=== PATIENT | female | born 1965 | race Caucasian/White ===

== ENCOUNTER → 2016-07-13 | Outpatient (CLI) | payer OTHER ==
[2016-05-23 19:45] VITALS: BP 111/71
--- NOTE | 2016-07-13 15:51 | RAD ---
Left foot, 3 views, 07/13/2016: History: Foot pain 3 weightbearing views of the left foot were obtained as requested. There is mild degenerative change at the first MTP joint. No fracture or dislocation is identified. There is a small inferior calcaneal spur. Several phlebolith type calcifications are noted in the soft tissues. IMPRESSION: 1. Mild degenerative change at the first MTP joint. 2. No acute bony abnormality is detected.
== END | disposition home or self-care (01) ==
LOC: DXRADRC 11:20
PROVIDERS: ATTEND Podiatrist Foot & Ankle Surgery
DX: M79.672 Pain in left foot (principal); I87.8 Other specified disorders of veins
CPT/HCPCS: 73630

== ENCOUNTER 2017-12-19 14:33 | Emergency (ER) | payer OTHER ==
[~2017-12-19] VITALS: Ht 165.1 cm; Wt 97.5 kg
--- NOTE | 2017-12-19 15:08 | PHYS DOC ---
Past History Past Medical History: GERD, Hypothyroid Past Surgical History: Cholecystectomy, Other Smoking: Non-smoker Alcohol Use: None Drug Use: None Adult General Chief Complaint Chief Complaint: LACERATION/AVULSION HPI HPI 52-year-old female presents with laceration of the back of her head. 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 As she was falling she struck the back of her head on the side of a desk. She had bleeding and pain immediately. She went to the school nurse who was able to stop the bleeding with simple pressure. The patient now has a throbbing headache in this area. She denies loss of consciousness or any other injury. Her tetanus is not up-to-date. She has no other complaints. Review of Systems Review of Systems Constitutional: Denies fever or chills [] Eyes: Denies change in visual acuity, redness, or eye pain [] HENT: Denies nasal congestion or sore throat [] Respiratory: Denies cough or shortness of breath [] Cardiovascular: No additional information not addressed in HPI [] GI: Denies abdominal pain, nausea, vomiting, bloody stools or diarrhea [] : Denies dysuria or hematuria [] Musculoskeletal: Denies back pain or joint pain [] Integument: Laceration of the posterior scalp[] Neurologic: Denies headache, focal weakness or sensory changes [] Endocrine: Denies polyuria or polydipsia [] All other systems were reviewed and found to be within normal limits, except as documented in this note. Allergies Allergies Allergies Coded Allergies Type Severity Reaction Last Updated Verified Penicillins Allergy Unknown 09/12/13 No Physical Exam Physical Exam Constitutional: Well developed, well nourished, no acute distress, non-toxic appearance. [] HENT: Normocephalic, atraumatic, bilateral external ears normal, oropharynx moist, no oral exudates, nose normal. [] Eyes: PERRLA, EOMI, conjunctiva normal, no discharge. [] Neck: Normal range of motion, no tenderness, supple, no stridor. [] Cardiovascular:Heart rate regular rhythm, no murmur [] Lungs & Thorax: Bilateral breath sounds clear to auscultation [] Abdomen: Bowel sounds normal, soft, no tenderness, no masses, no pulsatile masses. [] Skin: 3 cm linear laceration to the posterior scalp, no bleeding, no foreign objects seen[] Back: No tenderness, no CVA tenderness. [] Extremities: No tenderness, no cyanosis, no clubbing, ROM intact, no edema. [] Neurologic: Alert and oriented X 3, normal motor function, normal sensory function, no focal deficits noted. [] Psychologic: Affect normal, judgement normal, mood normal. [] EKG EKG [] Radiology/Procedures Radiology/Procedures [] Course & Med Decision Making Course & Med Decision Making Pertinent Labs and Imaging studies reviewed. (See chart for details) The patient has a simple laceration of the scalp. We gave her her to a shot in the ED. Her laceration was repaired with romulo without complication. See lack note for more details. I will discharge patient with a short course of [place] 5/ 325 for pain and help her sleep tonight. She was given one [place] in the ED as a friend is driving her home. She is stable for discharge at this time. [] Dragon Disclaimer Dragon Disclaimer This electronic medical record was generated, in whole or in part, using a voice recognition dictation system. Laceration Repair Lac Repair Indication: Patient a 3 cm linear laceration of the posterior scalp. Verbal consent was obtained for the procedure.[] Procedure: The patient was placed in the appropriate position and the wound was irrigated with normal saline. After irrigation, no anesthesia was used. The laceration was closed with 4 romulo. There was good hemostasis. No wound dressing was applied due to surrounding complications with her hair.. Total repaired wound length: 3cm Other Items: none The patient tolerated the procedure well. Complications: None. Departure Departure: Referrals: ROSARIO PARSONS (PCP) Scripts Hydrocodone Bit/Acetaminophen ([place] 5-325 TABLET) 1 Each Tablet 1 TAB PO PRN Q6HRS PRN for PAIN, #10 TAB 0 Refills Prov: MAR JASON DO 12/19/17 MAR JASON DO Dec 19, 2017 15:08
[2017-12-19 15:10] VITALS: BP 137/81
[2017-12-19] MEDS: HYDROcodone/APAP 5/325MG 1 TAB TABLET PO ONE (15:15)
[2017-12-19] MEDS ORDERED: HYDR-971 PO (15:26)
[2017-12-19] MEDS: DIPHTH,PERTUSS(ACELL),TET TOX 0.5 ML DISP.SYRIN. VAX IM ONE (15:26)
== END 2017-12-19 15:30 | disposition home or self-care (01) ==
LOC: ER 14:33
DX: S01.01XA Laceration without foreign body of scalp, initial encounter (principal); K21.9 Gastro-esophageal reflux disease without esophagitis; E03.9 Hypothyroidism, unspecified; Z88.0 Allergy status to penicillin; W01.198A Fall on same level from slipping, tripping and stumbling with subsequent striking against other object, initial encounter; Y93.89 Activity, other specified; Y92.89 Other specified places as the place of occurrence of the external cause; Y99.8 Other external cause status
CPT/HCPCS: 12002; 90471; 90715; 99283-25

== ENCOUNTER 2017-12-26 11:28 | Emergency (ER) | payer OTHER ==
[~2017-12-26] VITALS: Ht 165.1 cm; Wt 97.5 kg
[~2017-12-26 11:28] MED LIST: HYDR-971 PO
[2017-12-26 11:32] VITALS: BP 142/74
--- NOTE | 2017-12-26 15:11 | ED.ADGEN ---
Past History Past Medical History: GERD, Hypothyroid, Other Past Surgical History: Cholecystectomy, Other Smoking: Non-smoker Alcohol Use: Occasionally Drug Use: None Adult General Chief Complaint Chief Complaint Encounter for staple removal HPI HPI Patient is a 52-year-old female who presents for staple removal to apical scalp. No complications. Wound is healed. [] Review of Systems Review of Systems ROS as per HPI All other systems were reviewed and found to be within normal limits, except as documented in this note. Allergies Allergies Allergies Coded Allergies Type Severity Reaction Last Updated Verified Penicillins Allergy Unknown 09/12/13 No Physical Exam Physical Exam Constitutional: Well developed, well nourished, no acute distress, non-toxic appearance. [] HENT: Healing laceration to apical scalp, no infection, 4 romulo removed per nursing. [] Current Patient Data Vital Signs Vital Signs Date Time Temp Pulse Resp B/P (MAP) Pulse Ox O2 Delivery O2 Flow Rate FiO2 12/26/17 11:32 98.2 80 18 98 Room Air EKG EKG [] Radiology/Procedures Radiology/Procedures [] Course & Med Decision Making Course & Med Decision Making Pertinent Labs and Imaging studies reviewed. (See chart for details) [Typical closed staple instructions provided. ] Final Impression Final Impression [1. Encounter for staple removal] Dragon Disclaimer Dragon Disclaimer This electronic medical record was generated, in whole or in part, using a voice recognition dictation system. MAR HANEY DO Dec 26, 2017 15:11
== END 2017-12-26 11:54 | disposition home or self-care (01) ==
LOC: ER 11:28
DX: S01.01XD Laceration without foreign body of scalp, subsequent encounter (principal); K21.9 Gastro-esophageal reflux disease without esophagitis; E03.9 Hypothyroidism, unspecified; Z88.0 Allergy status to penicillin; X58.XXXD Exposure to other specified factors, subsequent encounter
CPT/HCPCS: 99281

== ENCOUNTER → 2020-09-14 | Outpatient (CLI) | payer BC ==
[~2020-09-14] MED LIST changes: +HYDR-3165 PO; -HYDR-971 PO
--- NOTE | 2020-09-16 11:08 | RAD ---
PROCEDURE: MG BILAT SCREEN+DAYAN HISTORY: The patient is 55 years old and is seen for Reason: SCREENING / Spl. Instructions: / Histor y: . COMPARISON: October 07, 2019 TECHNIQUE: CC and MLO views of both breasts were obtained. Images were processed by the [employer] computer-aided detection system. DENSITY: There are scattered fibroglandular densities. FINDINGS: No developing mass, suspicious calcifications or architectural distortion. IMPRESSION: Negative. No evidence of malignancy. Recommend annual screening mammograms per [employer] guidelines. BI-RADS category 1 Negative Patient entered into a reminder system for annual screening mammogram. Electronically signed by: Christopher Avery DO (09/16/2020 11:06 AM) [email or web address]
== END ==
LOC: MAMMO 11:27
PROVIDERS: ATTEND Physician Assistant Medical
DX: Z12.31 Encounter for screening mammogram for malignant neoplasm of breast (principal)
CPT/HCPCS: 77063; 77067